=== PATIENT | female | born 1980 | race American Indian/Alaskan Native ===

== ENCOUNTER 2020-02-26 19:17 | Emergency (ER) | payer SELFPAY ==
[2020-02-26 21:01] VITALS: BP 147/92
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
[2020-02-26] MEDS ORDERED: ACETAMINOPHEN 500 MG TAB PO ONE (21:48)
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
== END 2020-02-26 23:14 | disposition home or self-care (01) ==
LOC: ED 19:17
DX: R10.30 Lower abdominal pain, unspecified (principal); R07.89 Other chest pain; V49.59XA Passenger injured in collision with other motor vehicles in traffic accident, initial encounter; Y93.89 Activity, other specified; Y92.488 Other paved roadways as the place of occurrence of the external cause; Y99.8 Other external cause status
CPT/HCPCS: 71250; 74176; 93005